=== PATIENT | male | born 1970 | race Caucasian/White ===

== ENCOUNTER 2022-02-28 07:56 | Emergency (ER) | payer MEDICAID ==
[~2022-02-28] VITALS: Ht 167.6 cm; Wt 128.1 kg
[2022-02-28 08:02] VITALS: BP 150/90
--- NOTE | 2022-02-28 08:11 | NUR ---
SYBIL. HANDED ON URINE CUP.
--- NOTE | 2022-02-28 08:12 | NUR ---
BIB SELF C/O LEFT MID BACK PAIN X YESTERDAY. DENIES TRAUMA. BLOOD SUGAR 260 AT THIS TIME. DENIES N/V/D; SKIN IS PINK/WARM/DRY; AAOX4 WITH EVEN AND STEADY GAIT; LUNGS CLEAR BL; HR EVEN AND REGULAR; PT DENIES ANY FEVER, CP, SOB, OR COUGH AT THIS TIME; PATIENT STATES PAIN OF 10/10 AT THIS TIME.
--- NOTE | 2022-02-28 09:30 | NUR ---
PATIENT LEFT WITHOUT BEING SEEN BY DR. francois. NO FURTHER CARE PROVIDED FOR PATIENT.
== END 2022-02-28 09:30 | disposition left against medical advice (07) ==
LOC: MED 07:56
DX: M54.9 Dorsalgia, unspecified (principal); Z53.21 Procedure and treatment not carried out due to patient leaving prior to being seen by health care provider
CPT/HCPCS: 81002